=== PATIENT | male | born 1955 | race Caucasian/White ===

== ENCOUNTER 2023-11-05 06:07 | Day surgery (SDC) | payer BC, SELFPAY ==
[2023-11-05 06:53] VITALS: BMI 35.2
[2023-11-05 07:19] VITALS: BP 100/76; BMI 35.2
[2023-11-05] MEDS: PRED FORTE 1% EYE DROPS 1 DROP OPHTH (07:30)
[2023-11-05] MEDS: POLYTRIM OPHTHALMIC SOLUTION 1 DROP OPHTH (07:30)
[2023-11-05] MEDS: NEO-SYNEPHRINE 2.5% OPH SOL. 1 DROP OPHTH (07:30)
[2023-11-05] MEDS: ALCAINE 0.5% EYE DROPS 1 DROP OPHTH (07:30)
[2023-11-05] MEDS: CYCLOGYL 1% EYE DROPS 1 DROP OPHTH (07:31)
[2023-11-05] MEDS: MYDRIACYL 1 DROP OPHTH (07:31)
[2023-11-05] MEDS: ACUVAIL 1 DROPS OPHTH (07:31)
[2023-11-05] MEDS: NORMOSOL-R 1000 IV (07:32)
[2023-11-05] MEDS: AKTEN OPHTHALMIC GEL 1 ML OPHTH (07:32)
[2023-11-05 09:10] VITALS: BP 111/76
[2023-11-05 09:25] VITALS: BP 108/70
== END 2023-11-05 09:45 | disposition home or self-care (01) ==
LOC: SDS 06:07
PROVIDERS: ATTENDING PHYSICIAN Ophthalmology
DX: H25.811 Combined forms of age-related cataract, right eye (principal)
CPT/HCPCS: 66984

== ENCOUNTER → 2023-11-29 06:34 | Day surgery (SDC) | payer BC, SELFPAY | LOC: GI 06:34 | PROVIDERS: ATTENDING PHYSICIAN Internal Medicine | DX: Z12.11 Encounter for screening for malignant neoplasm of colon (principal); D12.4 Benign neoplasm of descending colon; K63.5 Polyp of colon; K57.30 Diverticulosis of large intestine without perforation or abscess without bleeding; K64.8 Other hemorrhoids | CPT/HCPCS: 45385; 88305 ==

== ENCOUNTER → 2024-07-11 06:39 | Outpatient (REF) | payer BC, SELFPAY | LOC: MRI 06:39 | PROVIDERS: ATTENDING PHYSICIAN Physician Assistant; FAMILY PHYSICIAN Family Medicine | DX: M54.16 Radiculopathy, lumbar region (principal) | CPT/HCPCS: 72148 ==

== ENCOUNTER → 2024-08-06 08:41 | Outpatient (REF) | payer BC, SELFPAY ==
[2024-08-06 10:05] LABS: % Basophils 1.8 % (0-2); % Eosinophils 4.7 % (0-6); % Immature Granulocytes 0.6 % (0-0.5); % Monocytes 7.6 % (1.7-9.3); % Neutrophils 60.3 % (42.2-75.2); Absolute Basophils 0.1 10^3/uL (0-0.2); Absolute Eosinophils 0.3 10^3/uL (0-0.7); Absolute Lymphocytes 1.8 10^3/uL (1.2-3.4); Absolute Monocytes 0.5 10^3/uL (0.1-0.6); Absolute Neutrophils 4.3 10^3/uL (1.4-6.5); Hematocrit 46.6 % (39.0-52.0); Hemoglobin 16.4 g/dL (13.0-18.0); Mean Corp Hgb Conc. 35.2 g/dL (33.0-37.0); Mean Platelet Volume 10.5 fL (7.4-10.4); Nucleated Red Blood Cells % 0 % (-); Platelet Count 257 10^3/uL (130-400); Red Blood Cell Count 5.12 10^6/uL (4.70-6.10); Red Cell Dist. Width 11.9 % (11.5-14.5); White Blood Cell Count 7.1 10^3/uL (4.8-10.8)
[2024-08-06 10:50] LABS: ALT (SGPT) 37 U/L (0-50); AST (SGOT) 28 U/L (17-59); Albumin 4.5 g/dl (3.5-5.0); Alkaline Phosphatase 76 U/L (38-126); Blood Urea Nitrogen 23 mg/dl (9-20); Calcium 9.5 mg/dl (8.4-10.2); Carbon Dioxide 21 mmol/L (22-30); Chloride 104 mmol/L (98-107); Glucose 115 mg/dl (70-99); HDL Cholesterol 53 mg/dl; LDL Cholesterol, Calculated 112 mg/dl; Potassium 4.4 mmol/L (3.5-5.1); Sodium 141 mmol/L (135-145); Total Bilirubin 0.7 mg/dl (0.2-1.3); Total Cholesterol 191 mg/dl (50-199); Total Protein 7.8 g/dl (6.3-8.2); Triglyceride 130 mg/dl (10-149); Very Low Density Lipoprotein 26 mg/dl (0-30); eGFR > 60.00
[2024-08-06 11:09] LABS: PSA, Total - Screen 0.42 ng/ml (0.0-4.0); TSH Reflex To Free T4 1.78 uIU/ml (0.47-4.68)
== END ==
LOC: REG 08:41
PROVIDERS: ATTENDING PHYSICIAN Student in an Organized Health Care Education/Training Program
DX: Z00.01 Encounter for general adult medical examination with abnormal findings (principal); Z13.220 Encounter for screening for lipoid disorders; Z12.5 Encounter for screening for malignant neoplasm of prostate; M54.16 Radiculopathy, lumbar region; D49.89 Neoplasm of unspecified behavior of other specified sites
CPT/HCPCS: 36415; 80053; 80061; 84443; 85025; G0103